=== PATIENT | female | born 1940 | race Caucasian/White ===

== ENCOUNTER 2018-05-06 21:05 | Emergency (ER) | payer OTHER, MEDICARE ==
[2018-05-06] MEDS ORDERED: predniSONE 20 MG TAB PO ONE (21:41)
[2018-05-06] MEDS ORDERED: IPRATROPIUM/ALBUTEROL 3 ML DEYVIAL IH ONE (21:42)
--- NOTE | 2018-05-06 22:21 | EDPHY ---
H & P Stated Complaint: SOB Time Seen by Provider: 05/06/18 21:16 HPI/ROS: This patient presents with dyspnea and hypoxia to the urgent care clinic sent here due to the hypoxia to the 80s. She explains that she has a history of baseline mild to moderate asthma with no visits to the ED in the past year prior to this 1 and developed cough over the past 24 hr now productive of green sputum with loss of her voice since yesterday evening and increasing dyspnea. She reports that she is exposed to a friend 2 days ago who subsequently called their explaining that this friend had pneumonia. This patient explains that when she is feeling well she does not typically need her albuterol, ulnar her Advair for maintenance. She has not used her albuterol yet today. She arrived by private vehicle with her for evaluation. ROS: Constitutional: No fevers. HEENT: Patient were sinus congestion and sinus pressure over the past 2 weeks her more prior to the symptoms. Pulmonary: No hemoptysis. No pleuritic pain. Cardiovascular: No chest pain. No heart palpitations. No leg swelling or pain. GI: No abdominal pain, nausea vomiting. Integumentary: No diaphoresis or pallor 10 point review of symptoms is performed and otherwise negative with exception of pertinent positives and negatives listed in HPI and ROS Source: Patient, Family (Her also provides history.) Exam Limitations: No limitations - Personal History Current Tetanus/Diphtheria Vaccine: Unsure Current Tetanus Diphtheria and Acellular Pertussis (TDAP): Unsure - Medical/Surgical History Hx Asthma: Yes Hx Chronic Respiratory Disease: Yes Hx Diabetes: Yes Hx Cardiac Disease: No Hx Renal Disease: No Hx Cirrhosis: No Hx Alcoholism: No Hx HIV/AIDS: No Hx Splenectomy or Spleen Trauma: No Other PMH: Asthma, pneumonia, HTN - Social History Smoking Status: Never smoked Alcohol Use: None Drug Use: None - Physical Exam Exam: Vital signs were normal exception of hypoxia on room air a corrected with nasal cannula O2 to the 90s. She is also mildly hypertensive initially 152/69. General Appearance: Alert, no distress. Eyes: Pupils equal and round no pallor or injection. ENT, Mouth: Mucous membranes moist. Patient has sinus tenderness frontal sinus area. Respiratory: Bilateral wheezing and mild rhonchi with deep breaths. No rales. Cardiovascular: Regular rate and rhythm. No murmur gallop rub. No JVD. No peripheral edema. No calf swelling or tenderness. Gastrointestinal: Abdomen is soft and nontender, no masses, bowel sounds normal. Neurological: GCS 15. Skin: Warm and dry, no rashes. Musculoskeletal: Neck is supple nontender. Extremities are symmetrical, full range of motion. Psychiatric: Mood and affect are normal DIFFERENTIAL DIAGNOSIS: After history and physical exam differential diagnosis was considered for viral laryngitis/bronchitis with asthma exacerbation, pneumonia, influenza, doubt myocardial ischemia or PE, Constitutional: Initial Vital Signs Temperature (C) 36.6 C 05/06/18 21:20 Heart Rate 72 05/06/18 21:20 Respiratory Rate 18 05/06/18 21:20 Blood Pressure 152/69 H 05/06/18 21:20 O2 Sat (%) 83 L 05/06/18 21:20 O2 Delivery Mode Nasal Cannula O2 (L/minute) 4 Allergies/Adverse Reactions: iodine Allergy (Verified 05/06/18 21:24) latex Allergy (Verified 05/06/18 21:24) Penicillins Allergy (Verified 05/06/18 21:23) Sulfa (Sulfonamide Antibiotics) Allergy (Verified 05/06/18 21:23) Home Medications: Medication Instructions Recorded Advair Hfa 115-21 Mcg Inhaler 05/06/18 Albuterol 05/06/18 Albuterol Hfa Anes Only [Proair 2 puffs IH Q4 PRN #1 mdi 05/06/18 Hfa Icu (*)] Atorvastatin Calcium 05/06/18 FLUoxetine 05/06/18 Losartan Potassium 05/06/18 Metformin HCl 05/06/18 Raloxifene HCl 05/06/18 buPROPion 05/06/18 levOFLOXACIN [Levaquin] 500 mg PO DAILY #6 tablet 05/06/18 predniSONE 60 mg PO DAILY #15 tab 05/06/18 Medical Decision Making - Diagnostics EKG Interpretation: 12 lead EKG performed shortly after arrival indication dyspnea performed at 10: 13 p.m. Sinus rhythm 77 Intervals: P R of 100 other intervals normal [place]: P of 82, QRS of 18, T of 5 ST segments: Normal throughout Overall assessment sinus rhythm with mildly shortened NV interval otherwise normal. Imaging Results: Two view chest x-ray: No focal infiltrates by my interpretation, mild widening of the upper mediastinum around the area of the thyroid. Findings consistent with bronchitis by my interpretation. Hair pin present on film this found in the patient's hair on exam Imaging: Discussed imaging studies w/ call out clerk Radiologist (I also spoke with the radiologist regarding this x-ray because he called regarding the hair pin) ED Course/Re-evaluation: Peak flows low at 150. DuoNeb Prednisone 60 mg Rapid influenza test is negative After initial DuoNeb patient has significant subjective improvement and resolution of wheezing with increased aeration and increased oxygenation. She has no setting the 90s on room air. Albuterol neb Levaquin Discussion: Findings are consistent with viral laryngitis/bronchitis with asthma exacerbation improved with treatment. She may have had a mucus plug in her bronchi a contributed to initial hypoxia and resolved with breathing treatment and coughing. We ruled out pneumonia with chest x-ray. When I spoke to the patient regarding her enlarged thyroid she is familiar with this and has a yearly thyroid test and yearly ultrasound of her thyroid due to thyroid nodules early in her life. She is due for her thyroid check in early May she reports. We ruled out influenza with negative rapid flu swab. Finally, EKG reveals no evidence of acute ischemic findings are his heart strain. She has a mildly shortened NV interval is suspect is baseline for her. She understands need to return emergency department if she develops any significant worsening symptoms despite treatment plan of prednisone, albuterol and Levaquin. 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 She understands potential risks of Levaquin accepts these risks. - Data Points Medications Given: Discontinued Medications Albuterol/Ipratropium (Duoneb) 3 ml IH EDNOW ONE Stop: 05/06/18 21:43 Last Admin: 05/06/18 21:55 Dose: 3 ml Prednisone (Prednisone) 60 mg PO EDNOW ONE Stop: 05/06/18 21:42 Last Admin: 05/06/18 21:46 Dose: 60 mg Point of Care Test Results: Influenza PCR Flu Nasal Swab Collection Date 05/06/18 Flu Nasal Swab Collection Time 21:28 Influenza A Result Not Detected Influenza B Result Not Detected Departure - Departure Disposition: Home, Routine, Self-Care Clinical Impression: Laryngitis, Thyromegaly Asthma exacerbation Qualifiers: Asthma severity: moderate Asthma persistence: unspecified Qualified Code(s): J45.901 - Unspecified asthma with (acute) exacerbation Acute bronchitis Qualifiers: Bronchitis organism: unspecified organism Qualified Code(s): J20.9 - Acute bronchitis, unspecified Sinusitis Qualifiers: Sinusitis location: frontal Chronicity: subacute Qualified Code(s): J01.10 - Acute frontal sinusitis, unspecified Condition: Good Instructions: Asthma (ED), Laryngitis (ED), Acute Bronchitis (ED) Additional Instructions: Diagnosis: 1. Asthma exacerbation 2. Laryngitis 3. Bronchitis 4. Sinusitis 5. Thyromegaly evident on chest x-ray Your rapid flu test is negative for flu tonight. Your EKG shows no concerning acute abnormalities. Your chest x-ray reveals findings consistent with asthma and bronchitis but no pneumonia. Your thyroid appears enlarged in the upper mediastinum evident on the chest x-ray. Plan: Humidifier Albuterol inhaler -2 puffs per 2-4 hours as needed for cough, wheeze or shortness of breath Prednisone as prescribed Levaquin antibiotic When you return home to [place], have your thyroid ultrasound Return emergency department for any significant shortness of breath despite treatment plan or other concerns. Referrals: NONE *PRIMARY CARE P,. [Primary Care Provider] - As per Instructions Tati Wong MD [Medical Doctor] - As per Instructions
[2018-05-06] MEDS ORDERED: ALBUTEROL 3 ML DEYVIAL IH ONE (22:30)
[2018-05-06 22:44] VITALS: BP 109/58
--- NOTE | 2018-05-06 23:02 | CPEKG ---
Test Reason : OPEN Blood Pressure : / mmHG Vent. Rate : 077 BPM Atrial Rate : 077 BPM P-R Int : 100 ms QRS Dur : 087 ms QT Int : 422 ms P-R-T Axes : 082 018 005 degrees QTc Int : 478 ms Sinus rhythm Short CO interval Confirmed by Cori Leonard ([id number]) on 05/06/2018 11:01:58 PM Referred By: CORI LEONARD Confirmed By:Cori Leonard
== END 2018-05-06 22:57 | disposition home or self-care (01) ==
LOC: CED 21:05
DX: J45.901 Unspecified asthma with (acute) exacerbation (principal); J04.0 Acute laryngitis; J20.9 Acute bronchitis, unspecified; J01.10 Acute frontal sinusitis, unspecified; E01.0 Iodine-deficiency related diffuse (endemic) goiter
CPT/HCPCS: 71046; 93005; 99284; J7512; J7613; 87400-QW-ER